=== PATIENT | female | born 1970 | race African-American/Black ===

== ENCOUNTER 2025-02-27 14:13 | Emergency (ER) | payer OTHER, SELFPAY ==
--- NOTE | ~2025-02-27 | XR_ITS ---
EXAMINATION: XR LUMBOSACRAL SPINE CLINICAL INFORMATION: low back pain COMPARISON: None available. TECHNIQUE: Three views of the lumbosacral spine. FINDINGS: The are 5 nonrib bearing vertebral bodies. 11 degrees dextroscoliosis. L1-2: Mild disc space narrowing. L2-3: There is mild disc space narrowing and endplate osteophytes. L3-4: Unremarkable L4-5: Unremarkable. L5-S1: Unremarkable. XR/XR lumbar spine 2-3V IMPRESSION: Mild dextro scoliosis. Mild degenerative disc disease. Electronically signed by: Mono Veloz MD 02/27/2025 04:52 PM EDT
[2025-02-27 14:49] VITALS: BP 146/80; PULSE 74; RESP 16; TEMP 36.6; O2SAT 100; BMI 25.7
--- NOTE | 2025-02-27 14:57 | ED.GENADULT ---
HPI - General Adult General Chief complaint: Back Pain/Injury Stated complaint: Back pain, L side pain Time Seen by Provider: 02/27/25 16:26 Source: patient Mode of arrival: ambulatory Limitations: no limitations History of Present Illness ED Provider: Jerry Coyne HPI narrative: 54 yold female healthy presents to the ED for left lower back pain that is worse on movement radiating down left leg. Patient denies any abdominal pain, dysuria, hematuria, urinary/bowel incontinence, IV drug use, immunocompromise diseases, fever, or chills. Related Data Previous Rx's ?Medication ?Instructions ?Recorded cyclobenzaprine 10 mg tablet 10 mg PO TID PRN muscle spasm #15 02/27/25 tabs prednisone 20 mg tablet 40 mg (2 x 20 mg) PO DAILY 5 days 02/27/25 #10 tabs Allergies Allergy/AdvReac Type Severity Reaction Status Date / Time No Known Allergies Allergy Verified 02/27/25 14:50 Review of Systems Review of Systems: back pain Yes all other systems are reviewed and are negative Physical Exam ED Vital Signs: Vital Signs - 24 hr 02/27/25 14:49 Temperature 97.8 F Pulse Rate 74 Respiratory Rate 16 Blood Pressure 146/80 H Pulse Oximetry 100 Oxygen Delivery Method Room Air BMI result Body Mass Index 25.7 Const General: cooperative, healthy appearing, comfortable, no acute distress, well developed, alert, awake and Physically active Orientation/consciousness: patient oriented x3 HENMT Head: Yes normal to inspection, Yes No palpable skull fracture present, Yes normocephalic and Yes atraumatic Eyes General: appearance normal, both eyes and all related structures Neck Neck: Yes normal visual inspection, Yes full ROM, Yes no lymphadenopathy, Yes no meningeal signs, Yes trachea midline, Yes supple, No anterior neck swelling and No tender Chest Chest palpation & inspection: normal inspection of the chest and normal palpation of entire chest wall Resp Effort & Inspection: normal respiratory effort and able to speak in complete sentences Auscultation: clear to auscultation bilaterally Cardio Jugular venous distension: no JVD Heart sounds: S1 normal heart sound present and S2 normal heart sound present GI Inspection: Yes normal to inspection Palpation (GI): Soft to palpation, not firm, nontender, no guarding and not rigid General: Yes no CVA tenderness Back/Spine/Pelvis Back: no CVA tenderness and back tenderness (lumbar) Skin General skin exam: no rashes or lesions noted, elasticity normal and turgor normal Neuro General: patient oriented x3, gait normal, tone normal, moves all extremities, Normal light touch and pain sensation, no meningeal signs, no focal motor deficits, CN's II-XI intact bilaterally and normal sensation to monofilament Extrem General: Yes normal to inspection, Yes full ROM and Yes capillary refill normal Psych Appearance: grossly normal, well kempt and not disheveled Course Course Course Narrative: RME: 54-year-old female presents to ED for left-sided back pain radiating down left leg and left groin for the past 5 days pain patient states pain is worse with movement. Patient denies any nausea, vomiting, dysuria, fever, or chills. UA ordered Medical Decision Making Medical Decision Making MDM Narrative: 54-year-old female presents to ED for left-sided back pain radiating down the stairs leg without any urinary/bowel incontinence, abdominal pain, dysuria, hematuria, flank pain, fever, chills, nausea or vomiting. Patient states pain is worse on movement. Patient denies any history of IV drug use. UA negative for any urinary infection her . X-ray shows degenerative disc disease. Patient already has alleve and Motrin at home. Patient will be discharged with steroids and muscle relaxer. Not suspecting cauda equina syndrome, epidural abscess, osteomyelitis, pyelonephritis, kidney stones, sepsis, or any other concerning symptoms. Differential Diagnosis Differential Diagnoses: The differential diagnosis associated with the presentation includes (Degenerative disc disease, UTI,) Admission/Observation Consideration of admission/observation: Escalation of care including admission/observation considered Lab Data [facility] Lab Attestation statement: I reviewed the patient's lab results. Labs: Lab Results 02/27/25 Range/Units 14:57 Urine Color Yellow Urine Appearance Clear Urine pH 6.5 (5.0-9.0) Ur Specific [place] 1.025 (1.005-1.025) Urine Protein Negative (Neg-Trace) mg/dL Urine Glucose (UA) Negative (Negative) mg/dL Urine Ketones Trace (Negative) mg/dL Urine Blood Negative (Negative) Urine Nitrite Negative (Negative) Ur Leukocyte Esterase Negative (Negative) Urine Test NEGATIVE (NEGATIVE) Independent Interpretation I performed an independent interpretation of an: Plain X-Ray Radiology Impression Discussion of test interpretation with radiology: I have reviewed the radiologist's reading. Independent Historian Clinical information obtained from an independent historian. History obtained from or confirmed by: Other (pain) Prescription Management I considered prescription management with: Pain Medication Discharge Plan Discharge Clinical Impression: Lumbar radiculopathy, Degenerative disc disease, lumbar Patient Disposition: Home, Self-Care Instructions: Lumbar Radiculopathy (ED), Degenerative Disc Disease (ED) Additional Instructions: Recommend follow-up with primary care provider. Return to the ED immediately for any worsening back pain, urinary/bowel incontinence, nausea, vomiting, dysuria, hematuria, flank pain, fever, chills, or any other concerning symptoms. Continue taking Aleve you have at home for pain relief EXAMINATION: XR LUMBOSACRAL SPINE CLINICAL INFORMATION: low back pain COMPARISON: None available. TECHNIQUE: Three views of the lumbosacral spine. FINDINGS: The are 5 nonrib bearing vertebral bodies. 11 degrees dextroscoliosis. L1-2: Mild disc space narrowing. L2-3: There is mild disc space narrowing and endplate osteophytes. L3-4: Unremarkable L4-5: Unremarkable. L5-S1: Unremarkable. XR/XR lumbar spine 2-3V IMPRESSION: Mild dextro scoliosis. Mild degenerative disc disease. Electronically signed by: Mono Veloz MD 02/27/2025 04:52 PM EDT Prescriptions: New prednisone 20 mg tablet 40 mg PO DAILY 5 Days Qty: 10 0RF cyclobenzaprine 10 mg tablet 10 mg PO TID PRN (Reason: muscle spasm) Qty: 15 0RF Rx Instructions: side effect is drowsiness. Do not take at work or while driving. Referrals: Abhishek Antoine MD, PhD [Physician] - (Degenerative disc disease) Stand Alone Forms: Work/School Release Print Language: Colombian
[2025-02-27 15:17] LABS: Appearance Urine Clear; Color Urine Yellow; Glucose Urine UA Negative (Negative); Leukocyte Esterase Urine Negative (Negative); Nitrite Urine Negative (Negative); PH 6.5 (5.0-9.0); Specific Gravity - Urine 1.025 (1.005-1.025); Urine Blood Negative (Negative); Urine Ketones Trace mg/dL (Negative); Urine Protein Negative (Neg-Trace)
[2025-02-27 15:20] LABS: UPreg QC Valid YES; Urine Pregnancy NEGATIVE (NEGATIVE)
[2025-02-27 18:03] VITALS: BP 146/80; PULSE 74; RESP 16; TEMP 36.6; O2SAT 100
== END 2025-02-27 18:03 | disposition home or self-care (01) ==
LOC: HO.ED 17:57
PROVIDERS: Physician Assistant; Emergency Provider Emergency Medicine
DX: M54.16 Radiculopathy, lumbar region (principal); M54.50 Low back pain, unspecified; R10.30 Lower abdominal pain, unspecified; M79.605 Pain in left leg
CPT/HCPCS: 72100; 81003; 81025; 99282; 99283

== ENCOUNTER → 2025-02-27 15:45 | Outpatient (BNV) | payer OTHER, SELFPAY | PROVIDERS: Emergency Provider Emergency Medicine; Visit Provider Radiology Diagnostic Radiology | DX: M25.78 Osteophyte, vertebrae (principal) | CPT/HCPCS: 72100 ==